=== PATIENT | male | born 1950 | race Caucasian/White ===

== ENCOUNTER 2018-01-29 10:40 | Day surgery (SDC) | payer OTHER, MEDICARE ==
[~2018-01-29] VITALS: Ht 177.8 cm; Wt 97.5 kg
[~2018-01-29 10:40] MED LIST: BENADRYL25 MG PO; Bactrim,Septra DS 80 PO; COUMADIN1 MG PO; DOK PLUS TABLE1 EACH PO; ENDOCET 5-3251 EACH PO; GLUCOSAMINE CH1 EACH PO; IRON325 MG PO; TRAMADOL HCL50 MG PO
[2018-01-29 11:23] VITALS: BP 135/83
[2018-01-29 16:02] VITALS: BP 169/82
[2018-01-29 17:30] VITALS: BP 166/83
== END 2018-01-29 17:40 | disposition home or self-care (01) ==
LOC: SDC 10:40
DX: M76.62 Achilles tendinitis, left leg (principal); M93.872 Other specified osteochondropathies, left ankle and foot; R26.2 Difficulty in walking, not elsewhere classified; K21.9 Gastro-esophageal reflux disease without esophagitis; Z85.46 Personal history of malignant neoplasm of prostate
CPT/HCPCS: 73630; 76000; C1713; J0131; J0690; J1100; J1170; J2250; J2405; J2710; S0020